=== PATIENT | female | born 1945 | race Caucasian/White ===

== ENCOUNTER 2018-12-02 19:20 | Emergency (ER) | payer MEDICARE, OTHER ==
[~2018-12-02] VITALS: Ht 165.1 cm; Wt 63.5 kg
[~2018-12-02 19:20] MED LIST: ACET-2605 PO; ALBU18HF2 IH; AMYL1CAP58 PO; APIX2.5T PO; CALC0.253 PO; CARV6.252 PO; CHOL100062 PO; CYCL30DR EACHEYE; DARB60VI SUBCUT; ESCI20TA PO; EZET10TA16 PO; FEBU40TA PO; FERR210T PO; FOLI0.8T2 PO; GABA-532 PO; LORA1TAB PO; MECL-102 PO; PALI6TAB PO; SEVE800T7 PO; SODI650T PO; ZOLP5TAB2 PO
--- NOTE | 2018-12-02 19:35 | NUR ---
PT CHELI C/Clair L HAND PAIN AND SWELLING FROM A CAT SCRATCHES 2 WEEKS AGO. TAKEN 2 COURSE UNKOWN ANTIBIOTICS W/ NO RELIEF. PT AOX4. RESP EVEN AND UNLABORED. PT ON MONITOR IN BED 4 WITH SON AT BEDSIDE. WILL CONTINUE TO MONITOR.
--- NOTE | 2018-12-02 20:17 | NUR ---
CALLED DR JARRELL FOR A DR TO LEFT A MESSAGE AND AWAITING HIS CALL
--- NOTE | 2018-12-02 20:23 | NUR ---
BLOOD DRAWN AND GIVEN TO LAB
[2018-12-02 20:24] LABS: BASOPHILS # (AUTO) 0.1 /CMM (0.0-0.2); BASOPHILS % (AUTO) 0.7 % (0.0-2.0); EOSINOPHILS % (AUTO) 0.7 % (0.0-6.0); HEMATOCRIT 33 % (33-45); HEMOGLOBIN 10.6 g/dL (11.5-14.8); LYMPHOCYTES % (AUTO) 22.1 % (20.0-44.0); MEAN CORPUSCULAR HGB CONC 32 g/dl (31.0-36.0); MEAN CORPUSCULAR VOLUME 93 fL (82-100); MONOCYTES % (AUTO) 10.4 % (2.0-12.0); NEUTROPHILS % (AUTO) 66.1 % (43.0-81.0); PLATELET COUNT (AUTO) 230 /CMM (150-450); RED BLOOD CELL COUNT(AUTO) 3.54 MIL/uL (4.0-5.2); WHITE BLOOD COUNT (AUTO) 9.1 K/uL (4.3-11.0)
--- NOTE | 2018-12-02 20:28 | NUR ---
PT TAKEN TO RADIOLOGY VIA [facility]
[2018-12-02] MEDS ORDERED: KETOROLAC TROMETHAMINE 15 MG/ML VIAL ONE (20:29)
[2018-12-02] MEDS ORDERED: KETOROLAC TROMETHAMINE INJ 30 MG/ML VIAL IV ONE (20:30)
[2018-12-02] MEDS ORDERED: IV NS 0.9% 1,000 ML BAG IV ONE (20:30)
[2018-12-02 20:37] LABS: CALCIUM, SERUM 8.2 mg/dL (8.5-10.1); CARBON DIOXIDE 16 mmol/L (21-32); CHLORIDE 100 mmol/L (98-107); CREATININE 4.7 mg/dL (0.6-1.3); GLUCOSE 105 mg/dL (74-106); POTASSIUM 4.5 mmol/L (3.5-5.1); SODIUM SERUM 130 mmol/L (136-145)
[2018-12-02 20:38] LABS: UREA NITROGEN, BLOOD 89 mg/dL (7-18)
--- NOTE | 2018-12-02 20:38 | NUR ---
BUN:89. AWARE
--- NOTE | 2018-12-02 20:43 | NUR ---
PT RETURNED FROM [facility]IOLOGY [facility]. PT TOLERATED WELL.
[2018-12-02 21:05] VITALS: BP 158/77
--- NOTE | 2018-12-02 21:48 | NUR ---
IV removed. Catheter intact and site benign. Pressure and 4x4 applied to site. No bleeding noted.Patient discharged to home in stable condition. Written and verbal after care instructions given. Patient verbalizes understanding of instruction.
[2018-12-10] MEDS ORDERED: HYDR-4384 PO (11:47)
[2018-12-10] MEDS ORDERED: SEVE800T7 PO (11:47)
[2018-12-10] MEDS ORDERED: DAPT500V2 IV (11:47)
[2018-12-10] MEDS ORDERED: ACID1TAB12 PO (11:47)
[2018-12-10] MEDS ORDERED: CEFE1FRO IV (11:47)
== END 2018-12-02 22:21 | disposition home or self-care (01) ==
LOC: ER 19:20
DX: L08.9 Local infection of the skin and subcutaneous tissue, unspecified (principal); M13.841 Other specified arthritis, right hand; E11.22 Type 2 diabetes mellitus with diabetic chronic kidney disease; I13.0 Hypertensive heart and chronic kidney disease with heart failure and stage 1 through stage 4 chronic kidney disease, or unspecified chronic kidney disease; N18.4 Chronic kidney disease, stage 4 (severe); I50.9 Heart failure, unspecified; Z79.899 Other long term (current) drug therapy
CPT/HCPCS: 36415; 73200; 80048; 84145; 85025; 86140; 96374; 99284; J1885; J7030

== ENCOUNTER 2018-12-06 14:20 | Outpatient (CLI) | payer MEDICARE, OTHER ==
[2018-12-06] MEDS ORDERED: AMLO5TAB9 PO (16:01)
[2018-12-06] MEDS ORDERED: FERR325T23 PO (16:01)
[2018-12-06] MEDS ORDERED: MUPI22OI2 TP (16:01)
[2018-12-06] MEDS ORDERED: TRAM50TA2 PO (16:01)
[2018-12-06] MEDS ORDERED: FLUT16SP BNOSTRILS (16:01)
[2018-12-06] MEDS ORDERED: SULF1TAB48 PO (16:01)
[2018-12-06] MEDS ORDERED: PHEN57OI RC (16:01)
[2018-12-06] MEDS ORDERED: PALI6TAB PO (16:01)
[2018-12-06] MEDS ORDERED: SERT25TA PO (16:01)
[2018-12-06] MEDS ORDERED: MECL-102 PO (16:01)
[2018-12-06] MEDS ORDERED: ASPI-1152 PO (16:01)
[2018-12-06] MEDS ORDERED: MEMA10TA PO (16:01)
[2018-12-06] MEDS ORDERED: ATOR10TA PO (16:01)
[2018-12-06] MEDS ORDERED: SEVE800T28 PO (16:01)
[2018-12-06] MEDS ORDERED: BUDE10.2 IH (16:01)
[2018-12-06] MEDS ORDERED: ERGO500014 PO (16:01)
[2018-12-06] MEDS ORDERED: AMIO200T4 PO (16:01)
[2018-12-06] MEDS ORDERED: ACET-868 PO (16:01)
[2018-12-10] MEDS ORDERED: HYDR-4384 PO (11:47)
[2018-12-10] MEDS ORDERED: DAPT500V2 IV (11:47)
[2018-12-10] MEDS ORDERED: SEVE800T7 PO (11:47)
[2018-12-10] MEDS ORDERED: ACID1TAB12 PO (11:47)
[2018-12-10] MEDS ORDERED: CEFE1FRO IV (11:47)
== END 2018-12-06 23:59 | disposition home health service (06) ==
LOC: WOU 14:20
PROVIDERS: ATTEND Surgery
DX: L03.113 Cellulitis of right upper limb (principal); S61.411D Laceration without foreign body of right hand, subsequent encounter; W55.03XD Scratched by cat, subsequent encounter; R60.0 Localized edema; I11.0 Hypertensive heart disease with heart failure; I50.9 Heart failure, unspecified; I82.402 Acute embolism and thrombosis of unspecified deep veins of left lower extremity; Z79.899 Other long term (current) drug therapy
CPT/HCPCS: G0463

== ENCOUNTER 2018-12-06 14:40 | Inpatient (IN) | payer MEDICARE, OTHER ==
[~2018-12-06] VITALS: Ht 165.1 cm; Wt 65.3 kg
--- NOTE | 2018-12-06 14:51 | NUR ---
BIB SON VFOR R HAND CELLULITIS. SEND BY DR JARRELL FOR IV ANTIBIOTICS" PT AAOX4, -SOB, NAD NOTED, VSS, PENDING MD NAZARIO
--- NOTE | 2018-12-06 14:51 | NUR ---
Misael salomongilson in EDM - 12/06/18 at 1636 by RHILOMEN ""im depressed and feeling suicidal" +plan, run BIB SON VFOR R HAND CELLULITIS. SEND BY DR JARRELL FOR IV ANTIBIOTICS" PT AAOX4, -SOB, NAD NOTED, VSS, PENDING MD NAZARIO
[2018-12-06] MEDS ORDERED: PIPERACILLIN /TAZOBACTAM 3.375 G in IV D5W 50 ML IV ONE (15:00)
[2018-12-06] MEDS ORDERED: VANCOMYCIN HCL 1 GM in IV D5W 260 ML IV ONE (15:00)
--- NOTE | 2018-12-06 15:09 | NUR ---
CALLED [facility], PAGED YAYA
[2018-12-06 15:27] LABS: BASOPHILS # (AUTO) 0.1 /CMM (0.0-0.2); BASOPHILS % (AUTO) 1.2 % (0.0-2.0); EOSINOPHILS % (AUTO) 1.2 % (0.0-6.0); HEMATOCRIT 34 % (33-45); HEMOGLOBIN 10.5 g/dL (11.5-14.8); LYMPHOCYTES # (AUTO) 1.3 /CMM (0.8-4.8); LYMPHOCYTES % (AUTO) 19.1 % (20.0-44.0); MEAN CORPUSCULAR HGB CONC 31 g/dl (31.0-36.0); MEAN CORPUSCULAR VOLUME 96 fL (82-100); MONOCYTES # (AUTO) 0.5 /CMM (0.1-1.30); MONOCYTES % (AUTO) 6.9 % (2.0-12.0); NEUTROPHILS % (AUTO) 71.6 % (43.0-81.0); PLATELET COUNT (AUTO) 153 /CMM (150-450); RED BLOOD CELL COUNT(AUTO) 3.48 MIL/uL (4.0-5.2); WHITE BLOOD COUNT (AUTO) 6.9 K/uL (4.3-11.0)
--- NOTE | 2018-12-06 15:32 | NUR ---
CALLED NURSING SUP FOR MEDSURG BED
[2018-12-06 15:33] LABS: CALCIUM, SERUM 8.8 mg/dL (8.5-10.1); CARBON DIOXIDE 11 mmol/L (21-32); CHLORIDE 103 mmol/L (98-107); CREATININE 5.7 mg/dL (0.6-1.3); GLUCOSE 89 mg/dL (74-106); POTASSIUM 4.8 mmol/L (3.5-5.1); SODIUM SERUM 130 mmol/L (136-145); UREA NITROGEN, BLOOD 76 mg/dL (7-18)
[2018-12-06] MEDS ORDERED: PALI6TAB PO (16:01)
[2018-12-06] MEDS ORDERED: SEVE800T28 PO (16:01)
[2018-12-06] MEDS ORDERED: BUDE10.2 IH (16:01)
[2018-12-06] MEDS ORDERED: AMIO200T4 PO (16:01)
[2018-12-06] MEDS ORDERED: MUPI22OI2 TP (16:01)
[2018-12-06] MEDS ORDERED: ACET-868 PO (16:01)
[2018-12-06] MEDS ORDERED: ERGO500014 PO (16:01)
[2018-12-06] MEDS ORDERED: TRAM50TA2 PO (16:01)
[2018-12-06] MEDS ORDERED: AMLO5TAB9 PO (16:01)
[2018-12-06] MEDS ORDERED: MEMA10TA PO (16:01)
[2018-12-06] MEDS ORDERED: ASPI-1152 PO (16:01)
[2018-12-06] MEDS ORDERED: PHEN57OI RC (16:01)
[2018-12-06] MEDS ORDERED: FLUT16SP BNOSTRILS (16:01)
[2018-12-06] MEDS ORDERED: MECL-102 PO (16:01)
[2018-12-06] MEDS ORDERED: SULF1TAB48 PO (16:01)
[2018-12-06] MEDS ORDERED: SERT25TA PO (16:01)
[2018-12-06] MEDS ORDERED: FERR325T23 PO (16:01)
[2018-12-06] MEDS ORDERED: ATOR10TA PO (16:01)
[2018-12-06] MEDS ORDERED: INSULIN REGULAR, HUMAN 100 UNIT/ML 3 ML VIAL SQ PRN (16:30)
[2018-12-06] MEDS ORDERED: HYDROCODONE/APAP 5/325MG 1 EACH TABLET PO PRN (16:30)
[2018-12-06] MEDS ORDERED: MAGNESIUM HYDROXIDE 30 ML UDC PO PRN (16:30)
[2018-12-06] MEDS ORDERED: DEXTROSE 50%-WATER 50 ML DISP.SYRIN IV PRN (16:30)
[2018-12-06] MEDS ORDERED: MAG HYDROX/AL HYDROX/SIMETH 30 ML UDC PO PRN (16:30)
[2018-12-06] MEDS ORDERED: TEMAZEPAM 15 MG CAPSULE PO PRN (16:30)
[2018-12-06] MEDS ORDERED: MORPHINE SULFATE INJ 2 MG/ML DISP.SYRIN IV PRN (16:30)
[2018-12-06] MEDS ORDERED: ERGOCALCIFEROL (VITAMIN D 2) 50,000 UNIT CAPSULE PO SCH (16:30)
[2018-12-06] MEDS ORDERED: ONDANSETRON HCL/PF 4 MG/2 ML VIAL IVP PRN (16:30)
--- NOTE | 2018-12-06 16:48 | NUR ---
REPORT GIVEN TO BILLIE SHEIKH FOR RAYSA PT WILL BE TRANSPORTED TO 3RD FLOOR MS
[2018-12-06] MEDS ORDERED: IV NS 0.9% 500 ML IV ONE (17:00)
[2018-12-06] MEDS: MEMANTINE HCL 5 MG TABLET PO SCH (17:00)
[2018-12-06] MEDS: GABAPENTIN 100 MG CAPSULE PO SCH (17:00)
[2018-12-06] MEDS: SODIUM BICARBONATE 650 MG TABLET PO SCH (17:00)
[2018-12-06] MEDS ORDERED: FEE PK DOSING 1 MIN EA MC ONE (17:12)
[2018-12-06] MEDS ORDERED: IPRATROPIUM NEB FS 0.5 MG/2.5 ML AMPUL.NEB NEB PRN (17:30)
[2018-12-06] MEDS ORDERED: ALBUTEROL FS 2.5 MG/3 ML VIAL.NEB NEB PRN (17:30)
[2018-12-06] MEDS: BLOOD SUGAR DIAGNOSTIC 1 EACH STRIP IN SCH ×2 (17:30→22:00)
--- NOTE | 2018-12-06 17:59 | NUR ---
PT TRANSPORTED TO 3RD FLOOR
[2018-12-06 18:00] VITALS: BP 149/75
--- NOTE | 2018-12-06 18:00 | NUR ---
RECEIVED PATIENT AWAKE , ALERT AND ORIENTED X4 , AMBULATORY. PATIENT ADM. TO MS WITH DIAGNOSIS R HAND CELLULITIS. SKIN INSPECTED AND INTACT EXCEPT R HAND. PICTURE TAKEN AND PLACED IN THE CHART. BELONGINGS LIST COMPLETED AND SIGHED BY 2 NURSES DUE TO PT RIGHT HANDED AND UNABLE TO SIGHT AT THIS TIME. vs ARE STABLE AND WITHIN BASELINE, ON ROOM AIR . IV ASSESS TO THE LEFT AC G20, LEFT ARM G20 HL FLUSHING WELL. PATIENT ORIENTED TO ROOM AND EDUCATED TO USE CALL LIGHT. PATIENT VERBALIZED UNDERSTANDING. NEEDS ATTENDED.DINNER PROVIDED. PATIENT REFUSED ACCU CHECK AND MOST OF 1700PM MEDS. PATIENT STATES SHE DOES NOT TAKE ALL THIS MEDS AND SHE IS NOT DIABETIC. WILL ENDORSE TO NEXT SHIFT FOR RAYSA.
[2018-12-06] MEDS: FERROUS SULFATE (325 MG) 325 MG/TAB TABLET PO SCH (18:37)
[2018-12-06] MEDS: SEVELAMER CARBONATE 800 MG TABLET PO SCH (18:37)
[2018-12-06] MEDS ORDERED: CLINDAMYCIN IV RTU IN D5W 900 MG/50 ML PIGGYBACK IV SCH (19:30)
--- NOTE | 2018-12-06 20:00 | NUR ---
MS RN NOTES PATIENT AWAKE IN BED WITH NO DISTRESS NOTED. CALL LIGHT WITHIN REACH. NO C/O PAIN OR DISCOMFORT. PERIPHERAL LINE INTACT AND PATENT. ENCOURAGED USE OF CALL LIGHT FOR ASSISTANCE AND VERBALIZED GOOD UNDERSTANDING. BED IN LOW LOCK SETTING. ROOM FREE OF CLUTTER AND BELONGINGS KEPT NEAR BEDSIDE. WILL CONTINUE TO MONITORING.
[2018-12-06] MEDS: PIPERACILLIN /TAZOBACTAM 2.25 G in IV D5W 50 ML IV SCH (21:31)
[2018-12-06 23:30] VITALS: BP 157/62
[2018-12-07] MEDS: ATORVASTATIN 10 MG TABLET PO SCH ×2 (00:30→21:10)
[2018-12-07] MEDS: CLINDAMYCIN 900 MG in IV D5W 50 ML IV SCH ×4 (00:34→21:58)
[2018-12-07] MEDS: PIPERACILLIN /TAZOBACTAM 2.25 G in IV D5W 50 ML IV SCH ×3 (05:24→21:08)
--- NOTE | 2018-12-07 06:32 | NUR ---
MS RN NOTES
--- NOTE | 2018-12-07 06:32 | NUR ---
OIL PIPE INSPECTOR NOTES PATIENT ASLEEP IN BED WITH NO DISTRESS NOTED. CALL LIGHT WITHIN REACH. ALL DUE MEDS GIVEN ORDERED WITH NO ASE NOTED. NO C/O PAIN OR DISCOMFORT. PERIPHERAL LINE INTACT AND PATENT. BED IN LOW LOCK SETTING. ROOM FREE OF CLUTTER AND BELONGINGS KEPT NEAR BEDSIDE. WILL ENDORSE TO ONCOMING SHIFT. Addendum: 12/07/18 at 0632 by DEBBIE BROWN RN MS SHEIKH NOTES
[2018-12-07] MEDS: BLOOD SUGAR DIAGNOSTIC 1 EACH STRIP IN SCH ×4 (07:27→22:00)
[2018-12-07 08:00] VITALS: BP 131/58
--- NOTE | 2018-12-07 08:00 | NUR ---
m/s health and nutrition specialist: initial assessment received pt in bed awake, a/ox3. dx: right hand cellulitis. right upper extremity elevated with pillow. pt cannot fully open her hand and still has some discomfort when hand is being used. no apparent distress noted. instructed to call for assistance.
[2018-12-07] MEDS: SEVELAMER CARBONATE 800 MG TABLET PO SCH ×3 (08:53→17:26)
[2018-12-07] MEDS: FERROUS SULFATE (325 MG) 325 MG/TAB TABLET PO SCH ×2 (08:54→17:00)
[2018-12-07] MEDS: EZETIMIBE 10 MG TABLET PO SCH (08:54)
[2018-12-07] MEDS: AMLODIPINE BESYLATE 5 MG TABLET PO SCH (08:54)
[2018-12-07] MEDS: MEMANTINE HCL 5 MG TABLET PO SCH ×2 (08:56→17:00)
[2018-12-07] MEDS: PANTOPRAZOLE 40 MG TABLET.DR PO SCH (08:56)
[2018-12-07] MEDS: MECLIZINE HCL 25 MG TABLET PO SCH (08:56)
[2018-12-07] MEDS: AMIODARONE HCL 200 MG TABLET PO SCH (08:56)
[2018-12-07] MEDS: ASPIRIN EC 81 MG TABLET.DR PO SCH (08:56)
[2018-12-07] MEDS: GABAPENTIN 100 MG CAPSULE PO SCH ×3 (08:56→17:00)
[2018-12-07] MEDS: SERTRALINE HCL 25 MG TABLET PO SCH (08:57)
--- NOTE | 2018-12-07 09:00 | NUR ---
m/s resource recovery engineer: notes noted pt selective with her meds. pt will go one by one with her meds. pt will refused them despite educated pt on her home medications.
[2018-12-07] MEDS: SODIUM BICARBONATE 650 MG TABLET PO SCH ×2 (10:26→17:26)
--- NOTE | 2018-12-07 11:00 | NUR ---
m/s machine packager: md visit seen and examined by dr. mata at this time.
--- NOTE | 2018-12-07 13:32 | NUR ---
m/dora long: notes pt refused lab draw per v belt mold assembler and curer and also from this morning. Addendum: 12/07/18 at 1704 by RUBENS BOB LVN pt remains selective with her meds.
[2018-12-07 16:00] VITALS: BP 113/45
--- NOTE | 2018-12-07 16:15 | NUR ---
m/s healthcare sales representative: notes f/u made re: invega and uloric meds. ask pt if one of the family can bring these to meds, stated, "i'm not taking invega anymore and i will ask my sister to bring my uloric med." pharmacist made aware.
[2018-12-07] MEDS ORDERED: LACTOBACILLUS RHAMNOSUS GG 1 EACH CAP.SPRINK PO SCH (17:00)
--- NOTE | 2018-12-07 17:26 | NUR ---
m/s materials director: notes offered her 5pm meds and pt refused to take them except for sodium bicarbonate tab.
--- NOTE | 2018-12-07 18:30 | NUR ---
m/s hospice care consultant: notes resting comfortable in bed. no distress noted. needs attended. will monitor.
[2018-12-07] MEDS ORDERED: VITAMINS A AND D 56.7 GM TUBE TP PRN ×2 (19:00)
--- NOTE | 2018-12-07 19:20 | NUR ---
m/s park interpretive ranger: notes report given to silvia (rn) for continuity of care.
--- NOTE | 2018-12-07 19:46 | NUR ---
MS RN NOTES RECEIVED PATIENT ASLEEP IN BED WITH NO DISTRESS NOTED. CALL LIGHT WITHIN REACH. NO C/O PAIN OR DISCOMFORT. PERIPHERAL LINE INTACT AND PATENT. BED IN LOW LOCK SETTING. ALL BELONGINGS KEPT NEAR BEDSIDE. WILL CONTINUE TO MONITOR.
[2018-12-07 20:00] VITALS: BP 119/58
[2018-12-07] MEDS: ACIDOPHILUS/BULGARICUS 1 EACH TAB.CHEW PO SCH (21:10)
[2018-12-07] MEDS: ACETAMINOPHEN 325 MG TABLET PO PRN (23:17)
[2018-12-08] MEDS: CLINDAMYCIN 900 MG in IV D5W 50 ML IV SCH ×3 (04:26→20:23)
[2018-12-08] MEDS: PIPERACILLIN /TAZOBACTAM 2.25 G in IV D5W 50 ML IV SCH ×3 (04:57→20:56)
--- NOTE | 2018-12-08 06:26 | NUR ---
MS RN NOTES PATIENT ASLEEP IN BED WITH NO DISTRESS NOTED. CALL LIGHT WITHIN REACH. NO FACIAL GRIMACING OR GROANING TO INDICATE PAIN OR DISCOMFORT. ALL DUE MEDS GIVEN ORDERED WITH NO ASE. PERIPHERAL LINE REMAINS INTACT AND PATENT. BED IN LOW LOCK SETTING. ALL BELONGINGS KEPT NEAR BEDSIDE. WILL ENDORSE TO ONCOMING SHIFT.
[2018-12-08] MEDS: BLOOD SUGAR DIAGNOSTIC 1 EACH STRIP IN SCH ×4 (07:30→21:54)
[2018-12-08] MEDS: PANTOPRAZOLE 40 MG TABLET.DR PO SCH (07:30)
[2018-12-08 08:00] VITALS: BP 139/66
--- NOTE | 2018-12-08 08:05 | NUR ---
ms rn received on bed, awake,alert,oriented x4,not in any form of distress, respirations even and unlabored,no sob noted, lungs are clear,abdomen soft,positive bowel sounds,denies pain at this time,all needs attended.
[2018-12-08] MEDS: GABAPENTIN 100 MG CAPSULE PO SCH ×3 (09:00→17:00)
[2018-12-08] MEDS: FLUTICASONE/VILANTEROL 1 EACH BLST.W.DEV IH SCH (09:00)
[2018-12-08] MEDS: MEMANTINE HCL 5 MG TABLET PO SCH ×2 (09:00→17:00)
[2018-12-08] MEDS: MECLIZINE HCL 25 MG TABLET PO SCH (09:00)
[2018-12-08] MEDS: ACIDOPHILUS/BULGARICUS 1 EACH TAB.CHEW PO SCH ×3 (09:00→17:00)
[2018-12-08] MEDS: ASPIRIN EC 81 MG TABLET.DR PO SCH (09:00)
[2018-12-08] MEDS: SERTRALINE HCL 25 MG TABLET PO SCH (09:00)
[2018-12-08] MEDS: AMIODARONE HCL 200 MG TABLET PO SCH (09:00)
[2018-12-08] MEDS: EZETIMIBE 10 MG TABLET PO SCH (09:00)
--- NOTE | 2018-12-08 09:30 | NUR ---
ms cardoza breakfast served,due meds given,tolerated well.
--- NOTE | 2018-12-08 09:30 | NUR ---
ms rn refused some of her meds,all needs attended.
[2018-12-08] MEDS: FERROUS SULFATE (325 MG) 325 MG/TAB TABLET PO SCH ×2 (09:34→17:14)
[2018-12-08] MEDS: AMLODIPINE BESYLATE 5 MG TABLET PO SCH (09:35)
[2018-12-08] MEDS: SEVELAMER CARBONATE 800 MG TABLET PO SCH ×3 (09:37→17:34)
[2018-12-08 09:43] LABS: CALCIUM, SERUM 8.6 mg/dL (8.5-10.1); CARBON DIOXIDE 13 mmol/L (21-32); CHLORIDE 105 mmol/L (98-107); CREATININE 5.7 mg/dL (0.6-1.3); GLUCOSE 85 mg/dL (74-106); POTASSIUM 4.8 mmol/L (3.5-5.1); SODIUM SERUM 133 mmol/L (136-145); UREA NITROGEN, BLOOD 68 mg/dL (7-18)
[2018-12-08] MEDS: SODIUM BICARBONATE 650 MG TABLET PO SCH ×2 (09:44→17:14)
--- NOTE | 2018-12-08 12:10 | NUR ---
ms cardoza bs - 119 - no coverage needed.
[2018-12-08 16:00] VITALS: BP 112/52
--- NOTE | 2018-12-08 19:28 | NUR ---
MS RN ON BED,NO DISTRESS NOTED.
[2018-12-08 20:00] VITALS: BP 129/55
--- NOTE | 2018-12-08 20:00 | NUR ---
MS/RN NOTES PATIENT ALERT, ORIENTED, X4, ABLE TO VERBALIZE NEEDS, RESPIRATIONS EVEN AND UNLABORED,5RIGHT HAND WITH CELLULITIS, ABLE TO WALK WITH SUPERVISION. TOLERABLE PAIN, CAN AMBULATE, ON IV ANTIBIOTIC THRERAPY, IV SITE WITH NO S/S OF INFILTRATION. REFUSE TO WEAR GOWN, COOPERATIVE AND MOTIVATED FOR SELF CARE, REPORTED WANT TO HAVE A GOOD SLEEP TONIGHT AND REQUESTED FOR THLENOL 650 MG FOR PAIN. BED LOCKED, CALL LIGHTS WITHIN REACH, WATCHING TV AT THIS TIME
[2018-12-08 20:06] VITALS: BP 129/55
--- NOTE | 2018-12-08 20:30 | NUR ---
ms/rn notes PATIENT REFUSED TO HAVE BLOOD SUGAR CHECK AND SAID SHE DOES NOT HAVE DIABETES PREFER TO HAVE IT CHECK ONCE ONLY IN AM.DISCUSSED CARE PLAN.
[2018-12-08] MEDS: ACETAMINOPHEN 325 MG TABLET PO PRN (20:31)
[2018-12-08] MEDS: ATORVASTATIN 10 MG TABLET PO SCH (21:54)
[2018-12-09] MEDS: CLINDAMYCIN 900 MG in IV D5W 50 ML IV SCH ×3 (04:00→21:26)
[2018-12-09] MEDS: PIPERACILLIN /TAZOBACTAM 2.25 G in IV D5W 50 ML IV SCH ×3 (04:43→20:24)
[2018-12-09] MEDS: BLOOD SUGAR DIAGNOSTIC 1 EACH STRIP IN SCH ×4 (06:30→22:00)
--- NOTE | 2018-12-09 06:30 | NUR ---
MS/RN NOTES PATIENT REFUSED TO HAVE BLOOD SUGAR CHECKED AND REPORTED SHE IS NOT DIABETIC.
--- NOTE | 2018-12-09 06:52 | NUR ---
MS/RN NOTES PATIENT ALERT, ORIENTED X3, ABLE TO VERBALIZE NEEDS, SLEPT GOOD. IV ON LEFT FOREARM PATENT WITH NO S/S OF INFILTRATION, IV ANTIBIOTIC INFUSED. RESPIRATIONS EVEN AND UNLABORED, PARTICIPATED WITH SELF CARE, AMBULATORY WITH SUPERVISION. DENIES AND REPORT PAIN TOLERABLE, RIGHT HAND WOUND ELEVATED PER MD ORDER. MONITORED AND WILL ENDORSE TO AM RN FOR RAYSA.
[2018-12-09 08:00] VITALS: BP 120/77
[2018-12-09] MEDS: MECLIZINE HCL 25 MG TABLET PO SCH (09:00)
[2018-12-09] MEDS: AMIODARONE HCL 200 MG TABLET PO SCH (09:00)
[2018-12-09] MEDS: ACIDOPHILUS/BULGARICUS 1 EACH TAB.CHEW PO SCH ×3 (09:00→17:00)
[2018-12-09] MEDS: SERTRALINE HCL 25 MG TABLET PO SCH (09:00)
[2018-12-09] MEDS: MEMANTINE HCL 5 MG TABLET PO SCH ×2 (09:00→17:00)
[2018-12-09] MEDS: FLUTICASONE/VILANTEROL 1 EACH BLST.W.DEV IH SCH (09:00)
[2018-12-09] MEDS: ASPIRIN EC 81 MG TABLET.DR PO SCH (09:00)
[2018-12-09] MEDS: AMLODIPINE BESYLATE 5 MG TABLET PO SCH (09:00)
[2018-12-09] MEDS: GABAPENTIN 100 MG CAPSULE PO SCH ×3 (09:00→17:00)
--- NOTE | 2018-12-09 10:00 | NUR ---
ms cardoza breakfast served,due meds given,tolerated well.
[2018-12-09] MEDS: SEVELAMER CARBONATE 800 MG TABLET PO SCH ×3 (10:43→18:04)
[2018-12-09] MEDS: EZETIMIBE 10 MG TABLET PO SCH (10:43)
[2018-12-09] MEDS: FERROUS SULFATE (325 MG) 325 MG/TAB TABLET PO SCH ×2 (10:43→18:04)
[2018-12-09] MEDS: PANTOPRAZOLE 40 MG TABLET.DR PO SCH (10:43)
[2018-12-09] MEDS: SODIUM BICARBONATE 650 MG TABLET PO SCH ×2 (10:44→18:04)
--- NOTE | 2018-12-09 11:30 | NUR ---
balbina cardoza was seen by clarence villegas/ orders made and carried out.
--- NOTE | 2018-12-09 12:00 | NUR ---
ms rn refused blood sugar check.
[2018-12-09] MEDS ORDERED: LIDOCAINE 1% INJ 50 ML MDV IJ STA (14:55)
--- NOTE | 2018-12-09 15:00 | NUR ---
ms rn debridement of right hand/finger done by ivette villegas/ dressing dry and intact. denies pain at this time.
[2018-12-09 16:00] VITALS: BP 150/69
[2018-12-09] MEDS ORDERED: VANCOMYCIN 0.75 GM in IV D5W 250 ML IV SCH (16:00)
--- NOTE | 2018-12-09 17:30 | NUR ---
ms rn patient refused blood sugar check.
--- NOTE | 2018-12-09 18:46 | NUR ---
ms rn on bed, no distress noted,all needs attended.
--- NOTE | 2018-12-09 19:33 | NUR ---
RN OPENING NOTES 1932 RECEIVED PATIENT FROM AGUILAR PATE. PATIENT IS A/O X 4, ABLE TO VERBALIZE NEEDS, RESPIRATIONS EVEN AND UNLABORED. RIGHT HAND WITH CELLULITIS. AMBULATORY WITH ASSISTANCE. IV SITE INTACT AND PATENT WITH NO SIGNS OR SYMPTOMS OF INFECTION/INFILTRATION. NO SIGNS OF RESPIRATORY DISTRESS. PATIENT DENIES SHORTNESS OF BREATH. SAFETY PRECAUTIONS IMPLEMENTED; CALL LIGHT WITHIN REACH, BED LOCKED, LOWEST POSITION, SIDE RAILS UP X2. WILL CONTINUE TO MONITOR.
[2018-12-09 20:00] VITALS: BP 137/58
[2018-12-09] MEDS: ACETAMINOPHEN 325 MG TABLET PO PRN (20:08)
--- NOTE | 2018-12-09 22:00 | NUR ---
RN NOTES PATIENT REFUSED PM ACCUCHEKS. SAYING SHE IS NOT DIABETIC. DISCUSSED THE RISKS FOR REFUSING ACCUCHEKS. PATIENT STILL REFUSED.
[2018-12-09] MEDS: ATORVASTATIN 10 MG TABLET PO SCH (22:20)
[2018-12-10] MEDS: CLINDAMYCIN 900 MG in IV D5W 50 ML IV SCH ×2 (04:06→14:48)
[2018-12-10] MEDS: PIPERACILLIN /TAZOBACTAM 2.25 G in IV D5W 50 ML IV SCH ×2 (04:37→13:18)
--- NOTE | 2018-12-10 06:00 | NUR ---
RN NOTES PATIENT REFUSED ACCUCHEKS FOR AM. SHE REPORTS SHE IS NOT DIABETIC. DISCUSSED THE RISKS FOR REFUSING BLOOD SUGAR CHECKS. PATIENT STILL REFUSES.
--- NOTE | 2018-12-10 06:01 | NUR ---
RN NOTES PATIENT REFUSED AM BLOOD DRAW FROM POST ACUTE CARE NURSE.
--- NOTE | 2018-12-10 06:14 | NUR ---
RN CLOSING NOTES PATIENT REMAINS IN BED, ASLEEP, EASILY AROUSABLE. ABLE TO VERBALIZE NEEDS. IV SITE REMAINS INTACT AND PATENT WITH NO SIGNS OR SYMPTOMS OF INFECTION/INFILTRATION. NO SIGNS OF RESPIRATORY DISTRESS, NO SHORTNESS OF BREATH NOTED. NO SIGNS OF FACIAL GRIMACING INDICATING PAIN OR DISCOMFORT AT THIS TIME. RIGHT HAND WOUND ELEVATED PER MD ORDER. SAFETY PRECAUTIONS IMPLEMENTED; CALL LIGHT WITHIN REACH, BED LOCKED, BED LOWEST POSITION, SIDE RAILS UP X2. WILL ENDORSE TO DAYSHIFT NURSE FOR CONTINUITY OF CARE.
[2018-12-10] MEDS: BLOOD SUGAR DIAGNOSTIC 1 EACH STRIP IN SCH ×3 (07:30→16:48)
[2018-12-10 08:00] VITALS: BP 130/70
--- NOTE | 2018-12-10 08:00 | NUR ---
m/s life coach: initial assessment received pt in bed awake, a/ox3-4. pt refused hospital food. pt has home food at bedside. dressing to right hand c/d/i. right upper ext elevated with pillow. no c/o pain or any discomfort. instructed to call for assistance. will continue to monitor.
[2018-12-10 08:59] VITALS: BP 130/70
[2018-12-10] MEDS: FLUTICASONE/VILANTEROL 1 EACH BLST.W.DEV IH SCH (08:59)
[2018-12-10] MEDS: AMLODIPINE BESYLATE 5 MG TABLET PO SCH (08:59)
[2018-12-10] MEDS: EZETIMIBE 10 MG TABLET PO SCH (08:59)
[2018-12-10] MEDS: SEVELAMER CARBONATE 800 MG TABLET PO SCH ×2 (08:59→17:59)
[2018-12-10] MEDS: SODIUM BICARBONATE 650 MG TABLET PO SCH ×2 (08:59→18:00)
[2018-12-10] MEDS: PANTOPRAZOLE 40 MG TABLET.DR PO SCH (08:59)
[2018-12-10] MEDS: FERROUS SULFATE (325 MG) 325 MG/TAB TABLET PO SCH ×2 (09:00→16:48)
[2018-12-10] MEDS: MEMANTINE HCL 5 MG TABLET PO SCH ×2 (09:00→16:48)
[2018-12-10] MEDS: AMIODARONE HCL 200 MG TABLET PO SCH (09:00)
[2018-12-10] MEDS: MECLIZINE HCL 25 MG TABLET PO SCH (09:00)
[2018-12-10] MEDS: ACIDOPHILUS/BULGARICUS 1 EACH TAB.CHEW PO SCH ×3 (09:00→16:48)
[2018-12-10] MEDS: GABAPENTIN 100 MG CAPSULE PO SCH ×3 (09:00→16:48)
[2018-12-10] MEDS: ASPIRIN EC 81 MG TABLET.DR PO SCH (09:00)
[2018-12-10] MEDS: SERTRALINE HCL 25 MG TABLET PO SCH (09:00)
--- NOTE | 2018-12-10 09:00 | NUR ---
m/s radio producer: notes pt remains selective with her meds, been refusing most of her meds since admission. will f/u with .
[2018-12-10 09:35] LABS: BASOPHILS # (AUTO) 0.1 /CMM (0.0-0.2); BASOPHILS % (AUTO) 2.3 % (0.0-2.0); EOSINOPHILS % (AUTO) 2.6 % (0.0-6.0); HEMATOCRIT 30 % (33-45); HEMOGLOBIN 9.8 g/dL (11.5-14.8); LYMPHOCYTES # (AUTO) 1.5 /CMM (0.8-4.8); LYMPHOCYTES % (AUTO) 29.2 % (20.0-44.0); MEAN CORPUSCULAR HGB CONC 33 g/dl (31.0-36.0); MEAN CORPUSCULAR VOLUME 93 fL (82-100); MONOCYTES # (AUTO) 0.3 /CMM (0.1-1.30); MONOCYTES % (AUTO) 6.8 % (2.0-12.0); NEUTROPHILS % (AUTO) 59.1 % (43.0-81.0); PLATELET COUNT (AUTO) 150 /CMM (150-450); RED BLOOD CELL COUNT(AUTO) 3.21 MIL/uL (4.0-5.2)
[2018-12-10 09:48] LABS: CALCIUM, SERUM 8.4 mg/dL (8.5-10.1); CARBON DIOXIDE 13 mmol/L (21-32); CHLORIDE 107 mmol/L (98-107); CREATININE 5.5 mg/dL (0.6-1.3); GLUCOSE 100 mg/dL (74-106); PHOSPHORUS 5.4 mg/dL (2.5-4.9); POTASSIUM 5.3 mmol/L (3.5-5.1); SODIUM SERUM 133 mmol/L (136-145); UREA NITROGEN, BLOOD 60 mg/dL (7-18)
--- NOTE | 2018-12-10 10:00 | NUR ---
m/s electronics detail draftsperson: notes pt likes to wear her own clothes, refuse to wear a gown. pt remains selective with meds; also suspicious. pt refusing full body assessment. will continue to monitor.
--- NOTE | 2018-12-10 11:00 | NUR ---
m/s [employer] officer: notes clarence jenkins (acnp) here and informed her that pt has been refusing most of her meds and accu check since admission with no new order. clarence (acnp) plan to discharge the pt with the picc line.
--- NOTE | 2018-12-10 11:35 | NUR ---
m/s upstairs maid: md visit seen and examined by clarence jenkins (acnp) with new order for picc line and pt for d'c today. pt verbalized understanding of the need for picc line insertion for iv antibiotics used and consent signed. rn supervisor pleating made aware. nandini reardon) making arrangement for home health.
[2018-12-10] MEDS ORDERED: SEVE800T7 PO (11:47)
[2018-12-10] MEDS ORDERED: CEFE1FRO IV (11:47)
[2018-12-10] MEDS ORDERED: HYDR-4384 PO (11:47)
[2018-12-10] MEDS ORDERED: ACID1TAB12 PO (11:47)
[2018-12-10] MEDS ORDERED: DAPT500V2 IV (11:47)
--- NOTE | 2018-12-10 12:10 | NUR ---
m/s cashier supervisor: notes received order from clarence (acnp) to discharge pt today with home health and follow up. pt aware and agreed. place a call to becky (son) and made aware, spoke to him over the phone and will call him later once everything has been arrangement. niece on the other phone and wants to pick pt up with her mother, informed niece to call becky (son).
--- NOTE | 2018-12-10 13:30 | NUR ---
m/s quarter supervisor: notes abnormal chem results noted. clarence (acnp) notified and will put the order in.
[2018-12-10] MEDS ORDERED: SODIUM POLYSTYRENE SULFONATE 15 G/60 ML BOTTLE PO ONE (14:30)
--- NOTE | 2018-12-10 15:10 | NUR ---
m/s roadway designer: notes Soto (son) called for update, informed him that we are still waiting on the picc line nurse to come. pt also aware.
--- NOTE | 2018-12-10 15:30 | NUR ---
m/s sales service assistant: notes taryn (picc line nurse) here for insertion. all supplies received.
--- NOTE | 2018-12-10 16:30 | NUR ---
m/s standard machine stitcher: notes picc line nurse unable to advance line due to pacemaker wire as stated. removed line after chest x-ray taken, lorna. well. offered femoral line, but pt refuses. pt has a shunt on right arm and unable to it on the site. offered midline, but pt refused. clarence (acnp) notified and made aware and wants to wait for id if they have other recommendation. pt made aware. clarence wants to hold d'c for now.
--- NOTE | 2018-12-10 17:15 | NUR ---
m/s shop firer/fireman: notes son here and aware that pt has been refused all lines that was recommended.
[2018-12-10] MEDS ORDERED: LIDOCAINE /MPF 1% VIAL 5 ML VIAL IJ STA (17:27)
--- NOTE | 2018-12-10 17:30 | NUR ---
m/s taxonomist: notes pt change her mind after another picc line nurse went to talk to pt and son. clarence (acnp) notified and made aware and okay to discharge once mid line is done. pt and son made aware.
--- NOTE | 2018-12-10 18:00 | NUR ---
m/s card tape converter operator: notes midline inserted to left upper arm by marifer (rn), lorna. well. h/l removed with tip intact.
--- NOTE | 2018-12-10 18:10 | NUR ---
m/s print cutter: notes discharge instructions with prescriptions given to becky (son) with medications teaching provided. son verbalized understanding.
--- NOTE | 2018-12-10 18:15 | NUR ---
m/s bleach supervisor: discharged discharged home in stable condition accompanied by son vis private car with all d'c papers and belongings.
== END 2018-12-10 18:16 | disposition home or self-care (01) | DRG 579 ==
LOC: ER 14:41 → MED 16:55
PROVIDERS: ADMIT Nurse Practitioner Acute Care; ATTEND Registered Nurse
PROC: 05HY33Z Insertion of Infusion Device into Upper Vein, Percutaneous Approach (ICD-10-PCS; 2018-12-06)
PROC: 0JBJ0ZZ Excision of Right Hand Subcutaneous Tissue and Fascia, Open Approach (ICD-10-PCS; principal; 2018-12-09)
DX: L03.113 Cellulitis of right upper limb (principal); N17.0 Acute kidney failure with tubular necrosis; I13.0 Hypertensive heart and chronic kidney disease with heart failure and stage 1 through stage 4 chronic kidney disease, or unspecified chronic kidney disease; E87.1 Hypo-osmolality and hyponatremia; N18.4 Chronic kidney disease, stage 4 (severe); Z86.718 Personal history of other venous thrombosis and embolism; E11.22 Type 2 diabetes mellitus with diabetic chronic kidney disease; W55.01XA Bitten by cat, initial encounter; I25.10 Atherosclerotic heart disease of native coronary artery without angina pectoris; W55.03XA Scratched by cat, initial encounter; S61.451A Open bite of right hand, initial encounter; Y92.9 Unspecified place or not applicable; Z99.2 Dependence on renal dialysis; Z79.899 Other long term (current) drug therapy; Z79.51 Long term (current) use of inhaled steroids; Z79.01 Long term (current) use of anticoagulants; I27.20 Pulmonary hypertension, unspecified; E87.5 Hyperkalemia; D63.8 Anemia in other chronic diseases classified elsewhere; H93.19 Tinnitus, unspecified ear; M65.821 Other synovitis and tenosynovitis, right upper arm
CPT/HCPCS: 36415; 36569; 71045-TC; 73130-TC; 73200-TC; 80048-TC; 82962-TC; 83735-TC; 84100-TC; 85025-TC; 87040-TC; 87081-TC; A6403; A6407; C1751; G0378; J1815; J2543; J3490; J7040; J7060; J8597

== ENCOUNTER 2019-04-12 01:30 | Emergency (ER) | payer MEDICARE, OTHER ==
[~2019-04-12] VITALS: Ht 165.1 cm; Wt 73.9 kg
[~2019-04-12 01:30] MED LIST changes: -ACET-2605 PO; +ACET-868 PO; +ACID1TAB12 PO; -ALBU18HF2 IH; +AMIO200T4 PO; +AMLO5TAB9 PO; -AMYL1CAP58 PO; -APIX2.5T PO; +ASPI-1152 PO; +ATOR10TA PO; +BUDE10.2 IH; -CALC0.253 PO; -CARV6.252 PO; +CEFE1FRO IV; -CHOL100062 PO; -CYCL30DR EACHEYE; +DAPT500V2 IV; -DARB60VI SUBCUT; +ERGO500014 PO; -ESCI20TA PO; -FEBU40TA PO; -FERR210T PO; +FERR325T23 PO; +FLUT16SP BNOSTRILS; -FOLI0.8T2 PO; +HYDR-4384 PO; -LORA1TAB PO; -MECL-102 PO; +MECL-159 PO; +MEMA10TA PO; +PHEN57OI RC; +SERT25TA PO; -ZOLP5TAB2 PO
[2019-04-12] MEDS ORDERED: DILTIAZEM HCL 25 MG IV ONE (01:45)
--- NOTE | 2019-04-12 01:47 | NUR ---
PT [id number]. SOB. TACHYCARDIA-[id number]. LAST HD ON SAT 04/09/19. GIVEN ALBUTEROL 5MG HHN BY EMS. BILATERAL LLE AND LEFT ARM EDEMA NOTED. AUDIBLE WHEEZING NOTED. PT AAOX4, PLACED ON 4 LITERS O2 SATTING 94%. CONNECTED TO COMMERCIAL COLLECTIONS SPECIALIST AND POX
[2019-04-12] MEDS ORDERED: DILTIAZEM HCL 50 MG IV ONE (01:56)
[2019-04-12] MEDS ORDERED: DILTIAZEM HCL 50 MG IV IV ONE (02:00)
[2019-04-12 02:17] LABS: BASOPHILS # (AUTO) 0.1 /CMM (0.0-0.2); BASOPHILS % (AUTO) 0.7 % (0.0-2.0); EOSINOPHILS % (AUTO) 1.1 % (0.0-6.0); HEMATOCRIT 31 % (33-45); HEMOGLOBIN 9.7 g/dL (11.5-14.8); LYMPHOCYTES # (AUTO) 2.9 /CMM (0.8-4.8); LYMPHOCYTES % (AUTO) 23.6 % (20.0-44.0); MEAN CORPUSCULAR HGB CONC 31 g/dl (31.0-36.0); MEAN CORPUSCULAR VOLUME 95 fL (82-100); MONOCYTES # (AUTO) 1.1 /CMM (0.1-1.30); NEUTROPHILS # (AUTO) 7.9 /CMM (1.8-8.9); NEUTROPHILS % (AUTO) 65.6 % (43.0-81.0); PLATELET COUNT (AUTO) 135 /CMM (150-450); RED BLOOD CELL COUNT(AUTO) 3.26 MIL/uL (4.0-5.2); WHITE BLOOD COUNT (AUTO) 12.1 K/uL (4.3-11.0)
[2019-04-12 02:32] LABS: ALANINE AMINOTRANSFERASE 89 U/L (12-78); ALKALINE PHOSPHATASE 75 U/L (46-116); ASPARTATE AMINOTRANSFERASE 40 U/L (15-37); BILIRUBIN,DIRECT 0.2 mg/dL (0.0-0.2); BILIRUBIN,TOTAL 0.7 mg/dL (0.2-1.0); CALCIUM, SERUM 8.3 mg/dL (8.5-10.1); CARBON DIOXIDE 23 mmol/L (21-32); CHLORIDE 101 mmol/L (98-107); CREATININE 4.5 mg/dL (0.6-1.3); GLUCOSE 126 mg/dL (74-106); POTASSIUM 4.8 mmol/L (3.5-5.1); SODIUM SERUM 137 mmol/L (136-145); TOTAL PROTEIN, SERUM 5.9 g/dL (6.4-8.2); UREA NITROGEN, BLOOD 38 mg/dL (7-18)
--- NOTE | 2019-04-12 04:00 | NUR ---
Patient does not wish to proceed with medical care recommended by Dr. Bazzi. Patient given information related to possible complications, up to and including , which could occur as a result of leaving the hospital at this time. Patient verbalizes understanding of risks involved due to leaving against medical advice. Patient has signed AMA form.
[2019-04-12 05:39] VITALS: BP 131/74
[2019-04-26] MEDS ORDERED: AMOX-427 PO (19:18)
[2019-04-26] MEDS ORDERED: APIX2.5T PO (19:18)
[2019-04-26] MEDS ORDERED: DILT-4 PO (19:18)
[2019-04-26] MEDS ORDERED: CARV6.252 PO (19:18)
== END 2019-04-12 05:40 | disposition left against medical advice (07) ==
LOC: MERGE 01:31 → ER 01:31
DX: E87.79 Other fluid overload (principal); I10 Essential (primary) hypertension; J45.909 Unspecified asthma, uncomplicated; Z98.890 Other specified postprocedural states
CPT/HCPCS: 36415; 71045; 80048; 80076; 83605; 84484; 85025; 85730; 87040 ×2; 93005 ×2; 96374; 99285; J3490 ×2

== ENCOUNTER 2019-04-22 23:37 | Inpatient (IN) | payer MEDICARE, OTHER ==
[~2019-04-22] VITALS: Ht 172.7 cm; Wt 59.9 kg
--- NOTE | 2019-04-22 23:40 | NUR ---
PT BIB EMS C/O SOB WITH RALES, RHONCHI HEARD BILATERALLY ON AUSCULTATION. BLE PRESENT. PT AAOX3, ON CPAP MIMEOGRAPH OPERATOR, RT AT BEDSIDE, PATIENT PLACED ON BIPAP, PT CONNECTED TO THE SPINNING ROOM WORKER AND POX
--- NOTE | 2019-04-22 23:45 | NUR ---
MANAGER SALES AND MARKETING AT BEDSIDE FOR BLOOD DRAW
--- NOTE | 2019-04-22 23:52 | NUR ---
RT NOTE Pt rec'd on cpap mask 15lpm. Pt showed signs of resp distress. pt placed on bipap per md orders on noted settings given per md orders. Abg to be taken in 1 hr. Alarms are set and audible. Bipap plugged into red outlet. Ambu bag bedside. Will continue to monitor. Addendum: 04/23/19 at 0123 by BRITTANEY BRIDGES RT Amended: Links added.
[2019-04-22] MEDS ORDERED: ALBUTEROL FS 2.5 MG/3 ML VIAL.NEB ONE (23:54)
[2019-04-22] MEDS ORDERED: IPRATROPIUM NEB FS 0.5 MG/2.5 ML AMPUL.NEB ONE (23:54)
[2019-04-23] VITALS (37 sets, daily range): BP systolic 94–158; BP diastolic 47–91
[2019-04-23] MEDS ORDERED: IPRATROPIUM NEB FS 0.5 MG/2.5 ML AMPUL.NEB NEB ONE
[2019-04-23] MEDS ORDERED: PIPERACILLIN /TAZOBACTAM 3.375 G in IV D5W 50 ML IV ONE ×2
[2019-04-23] MEDS ORDERED: methylPREDNISolone SOD SUCC 125 MG/2ML VIAL IV ONE
[2019-04-23] MEDS ORDERED: ALBUTEROL FS 2.5 MG/3 ML VIAL.NEB NEB ONE
[2019-04-23] MEDS ORDERED: methylPREDNISolone SOD SUCC 125 MG/2ML VIAL ONE (00:01)
[2019-04-23] MEDS ORDERED: VANCOMYCIN 1 GM VIAL ONE (00:02)
[2019-04-23] MEDS ORDERED: PIPERACILLIN /TAZOBACTAM 3.375 G VIAL IV ONE (00:02)
--- NOTE | 2019-04-23 00:40 | NUR ---
BREATHIGN TX IN PROGRESS
--- NOTE | 2019-04-23 00:40 | NUR ---
RT AT BEDSIDE
[2019-04-23 00:59] LABS: ABG BASE EXCESS -0.8 mmol/L; ABG OXYGEN SATURATION 99.3 % (92.0-98.5); ABG PCO2 39.8 mmHg (35.0-45.0); ABG PH 7.397 (7.350-7.450); ABG PO2 369.3 mmHg (75.0-100.0); AaDO2 303.9 mmHg; COHb 0.3 % (0.5-1.5); MetHb 0.5 % (0.0-1.5); O2Hb 98.5 % (94.0-97.0); SITE, ABG Left Radial
[2019-04-23 01:08] LABS: CALCIUM, SERUM 8.4 mg/dL (8.5-10.1); CARBON DIOXIDE 23 mmol/L (21-32); CHLORIDE 102 mmol/L (98-107); CREATININE 3.7 mg/dL (0.6-1.3); GLUCOSE 187 mg/dL (74-106); POTASSIUM 3.9 mmol/L (3.5-5.1); SODIUM SERUM 137 mmol/L (136-145); UREA NITROGEN, BLOOD 22 mg/dL (7-18)
[2019-04-23 01:10] LABS: BASOPHILS # (AUTO) 0.8 /CMM (0.0-0.2); BASOPHILS % (AUTO) 5.2 % (0.0-2.0); EOSINOPHILS % (AUTO) 1.1 % (0.0-6.0); HEMATOCRIT 31 % (33-45); HEMOGLOBIN 9.1 g/dL (11.5-14.8); LYMPHOCYTES # (AUTO) 1.1 /CMM (0.8-4.8); LYMPHOCYTES % (AUTO) 6.8 % (20.0-44.0); MEAN CORPUSCULAR HGB CONC 30 g/dl (31.0-36.0); MEAN CORPUSCULAR VOLUME 101 fL (82-100); MONOCYTES # (AUTO) 0.7 /CMM (0.1-1.30); MONOCYTES % (AUTO) 4.4 % (2.0-12.0); NEUTROPHILS # (AUTO) 13.4 /CMM (1.8-8.9); NEUTROPHILS % (AUTO) 82.5 % (43.0-81.0); PLATELET COUNT (AUTO) 134 /CMM (150-450); RED BLOOD CELL COUNT(AUTO) 3.05 MIL/uL (4.0-5.2); WHITE BLOOD COUNT (AUTO) 16.2 K/uL (4.3-11.0)
[2019-04-23 01:19] LABS: ALKALINE PHOSPHATASE 78 U/L (46-116); ASPARTATE AMINOTRANSFERASE 23 U/L (15-37); B-TYPE NATRIURETIC PEPTIDE 48147 PG/ML (0-125); BILIRUBIN,DIRECT 0.3 mg/dL (0.0-0.2); TOTAL PROTEIN, SERUM 6.2 g/dL (6.4-8.2)
[2019-04-23] MEDS ORDERED: FUROSEMIDE 40 MG/4 ML VIAL ONE (01:24)
[2019-04-23] MEDS ORDERED: FUROSEMIDE 40 MG/4 ML VIAL IV ONE (01:30)
[2019-04-23 01:37] LABS: ALANINE AMINOTRANSFERASE 29 U/L (12-78)
--- NOTE | 2019-04-23 02:00 | NUR ---
PT UNABLE TO PROVIDE URINE. MADE AWARE
[2019-04-23 02:17] LABS: BAND % (MANUAL) 1 % (0.0-5.0); LYMPHOCYTES % (MANUAL) 11 % (16-48); METAMYELOCYTES % 1 % (0-0); MONOCYTES % (MANUAL) 2 % (0-11.0); MYELOCYTES % 1 % (0-0); NEUTROPHILS % (MANUAL) 83 (42-76); REACTIVE LYMPHOCYTES 1 % (0-0)
--- NOTE | 2019-04-23 02:28 | NUR ---
DR. WOODS ON THE PHONE WITH DR. ELENA
--- NOTE | 2019-04-23 02:38 | NUR ---
BED ASSIGNMENT 255
[2019-04-23] MEDS ORDERED: *INSULIN REGULAR(HUMULIN R)HUM 100 UNIT/ML VIAL SQ PRN (03:30)
[2019-04-23] MEDS ORDERED: ACETAMINOPHEN 325 MG TABLET PO PRN (03:30)
[2019-04-23] MEDS ORDERED: HYDROCODONE/APAP 5/325MG 1 EACH TABLET PO PRN (03:30)
[2019-04-23] MEDS ORDERED: ONDANSETRON HCL/PF 4 MG/2 ML VIAL IVP PRN (03:30)
[2019-04-23] MEDS ORDERED: MAG HYDROX/AL HYDROX/SIMETH 30 ML UDC PO PRN (03:30)
[2019-04-23] MEDS ORDERED: DEXTROSE 50%-WATER 50 ML DISP.SYRIN IV PRN (03:30)
[2019-04-23] MEDS ORDERED: Z GUARD REMEDY 2 OZ OINT TP PRN (03:30)
[2019-04-23] MEDS ORDERED: MAGNESIUM HYDROXIDE 30 ML UDC PO PRN (03:30)
--- NOTE | 2019-04-23 04:10 | NUR ---
PT TRANSFERRED TO 255 IN STABLE CONDITION VIA ACLS PROTOCOL
--- NOTE | 2019-04-23 05:03 | NUR ---
PATROL POLICE LIEUTENANT PT WAS ADMITTED FROM ER @ 4 A.M. WITH DIAGNOSIS RESPIRATORY FAILURE. PT IS AWAKE, ALERT, ORIENTED X 3. PT IS COMFORTABLE- DENIES PAIN, SOB OR ANY OTHER DISCOMFORT. MOVES ALL EXTREMITIES, LEGS ARE WEAK. SPEECH IS CLEAR. VSS. AFEBRILE, SCOPE-A.FIB. PT HAS LEFT UPPER CHEST PACEMAKER. BILATERAL RALES. NO COUGH, NO SPUTUM PRODUCTION. PT IS ON BIPAP. SETTING 12/-18-50%. TOLERATES WELL. BILATERAL LOWER EXTREMITIES AND LEFT ARM EDEMA + 3. LEFT ARM A/V FISTULA. PT HAS ESRD. LAST HD DONE ON THURSDAY. NO URINE OUTPUT @ THIS TIME /PT STATES THAT SHE STILL PRODUCED SMALL AMT. OF URINE @ HOME. 2 D ECHO IS SUPPOSED TO BE DONE IN A.M. WILL CONTINUE CLOSE MONITORING.
[2019-04-23] MEDS: BLOOD SUGAR DIAGNOSTIC 1 EACH STRIP VI SCH ×4 (07:49→21:44)
[2019-04-23] MEDS ORDERED: VANCOMYCIN 500 MG in IV D5W 100 ML IV PRN (08:00)
[2019-04-23] MEDS ORDERED: FEE PK DOSING 1 MIN EA MC ONE (08:00)
[2019-04-23] MEDS: INSULIN REGULAR, HUMAN 100 UNIT/ML 3 ML VIAL SQ PRN (08:41)
[2019-04-23] MEDS ORDERED: EPOETIN ALFA (10,000 UNIT) 10,000 UNIT/ML VIAL IV ONE (09:00)
[2019-04-23] MEDS ORDERED: methylPREDNISolone SOD SUCC 125 MG/2ML VIAL IV SCH (09:00)
[2019-04-23] MEDS: FUROSEMIDE 40 MG/4 ML VIAL IV SCH ×2 (10:03→21:20)
[2019-04-23] MEDS: PIPERACILLIN /TAZOBACTAM 2.25 G in IV D5W 50 ML IV SCH ×2 (11:21→18:39)
[2019-04-23] MEDS ORDERED: VANCOMYCIN 1 GM in IV D5W 250 ML IV ONE ×3 (11:30)
--- NOTE | 2019-04-23 11:55 | NUR ---
RN NOTE: Severo Kim DNP inserted a (L) UA midline for the patient. Old IV site was removed. And HD was done with 2L of fluid removed.
--- NOTE | 2019-04-23 14:00 | NUR ---
RN NOTE: Informed consent for US Guided Thoracentesis was signed by the patient and filed on patient's chart. US Eliane vtc technician was made aware.
--- NOTE | 2019-04-23 15:22 | NUR ---
per RN/ LUISANA consent for Thoracentesis was not signed and Pt was on dialysis till afternoon.
--- NOTE | 2019-04-23 16:25 | NUR ---
RN NOTE: Patient had a (R) lung thoracentesis at the bedside and 220 ml of fluid (reddish in color) was removed by the radiologist.
--- NOTE | 2019-04-23 19:20 | NUR ---
FORMSTONE FITTER NOTE RECEIVED PATIENT IN BED RESTING WITH HOB ELEVATED. A&O X3. VERBALLY RESPONSIVE, ABLE TO SPEAK SPANISH. SPEECH IS CLEAR. ON 3 L O2 VIA NC. BREATHING EVEN AND NON LABORED. NO SOB NOTED. BILATERAL UPPER AND LOWER EXTREMITIES WNL. HD CATH NOTED ON RIGHT UPPER ARM. PATIENT HAS NATHALIA MIDLINE AND PATENT. IN NO APPARENT DISTRESS NOTED AT THIS TIME. CALL LIGHT IS WITHIN EASY REACH. WILL CONTINUE TO MONITOR.
--- NOTE | 2019-04-23 19:50 | NUR ---
RN NOTE: Bedside report was given to AGUILAR Mccoy for continuity of care. Patient has been tolerating O2 3l/min via NC. (L) UA midline noted intact and patent. IV Zosyn was administered late due to the late administration this morning s/p hemodialysis.
--- NOTE | 2019-04-23 21:40 | NUR ---
NATIONAL SALES EXECUTIVE NOTE PATIENT REFUSED BLOOD SUGAR CHECK AT THIS TIME. PATIENT VERBALIZED, "I DON'T WANT BLOOD SUGAR CHECK." PATIENT IS ALERT AND ORIENTED X3. WILL CONTINUE TO MONITOR.
[2019-04-24] VITALS (31 sets, daily range): BP systolic 101–162; BP diastolic 48–83
[2019-04-24] MEDS: PIPERACILLIN /TAZOBACTAM 2.25 G in IV D5W 50 ML IV SCH ×3 (00:30→17:59)
[2019-04-24 04:54] LABS: BASOPHILS % (AUTO) 0.1 % (0.0-2.0); HEMATOCRIT 28 % (33-45); HEMOGLOBIN 8.8 g/dL (11.5-14.8); LYMPHOCYTES # (AUTO) 0.7 /CMM (0.8-4.8); MEAN CORPUSCULAR HGB CONC 32 g/dl (31.0-36.0); MEAN CORPUSCULAR VOLUME 95 fL (82-100); MONOCYTES # (AUTO) 0.6 /CMM (0.1-1.30); MONOCYTES % (AUTO) 4.6 % (2.0-12.0); NEUTROPHILS # (AUTO) 10.9 /CMM (1.8-8.9); NEUTROPHILS % (AUTO) 89.3 % (43.0-81.0); PLATELET COUNT (AUTO) 121 /CMM (150-450); WHITE BLOOD COUNT (AUTO) 12.2 K/uL (4.3-11.0)
--- NOTE | 2019-04-24 05:00 | NUR ---
SANDSTONE SPLITTER NOTE PATIENT REFUSED BED BATH AT THIS TIME. PATIENT IS A&O X3, AMBULATORY WITH MINIMAL ASSISTANCE, AND MOTIVATED TO SELF CARE.
[2019-04-24 05:11] LABS: CALCIUM, SERUM 8.4 mg/dL (8.5-10.1); CARBON DIOXIDE 28 mmol/L (21-32); CHLORIDE 100 mmol/L (98-107); CREATININE 3.9 mg/dL (0.6-1.3); GLUCOSE 137 mg/dL (74-106); MAGNESIUM 1.9 mg/dL (1.8-2.4); PHOSPHORUS 3.9 mg/dL (2.5-4.9); POTASSIUM 4.5 mmol/L (3.5-5.1); SODIUM SERUM 137 mmol/L (136-145); UREA NITROGEN, BLOOD 26 mg/dL (7-18)
--- NOTE | 2019-04-24 07:23 | NUR ---
WORKERS COMPENSATION PARALEGAL CLOSING NOTE PATIENT IS IN BED RESTING WITH HOB ELEVATED. A&O X3. BREATHING EVEN AND NON LABORED, NO SOB NOTED. ON O2 3L VIA. AMBULATORY WITH MINIMAL ASSISTANCE. BRP. DUE MEDS GIVEN AND TOLERATED WELL. PATIENT REFUSED BED BATH IN THIS SHIFT. PATIENT KEPT COMFORTABLE THROUGHOUT THE NIGHT. CALL LIGHT IS WITHIN REACH. ALL NEEDS ATTENDED AND MET. ENDORSED TO AM SHIFT RN FOR CONTINUATION OF CARE.
[2019-04-24] MEDS: INSULIN REGULAR, HUMAN 100 UNIT/ML 3 ML VIAL SQ PRN (07:37)
[2019-04-24] MEDS: BLOOD SUGAR DIAGNOSTIC 1 EACH STRIP VI SCH ×4 (07:37→22:00)
[2019-04-24] MEDS: FUROSEMIDE 40 MG/4 ML VIAL IV SCH (08:30)
[2019-04-24] MEDS: APIXABAN 2.5 MG TABLET PO SCH ×2 (09:51→17:50)
[2019-04-24] MEDS: DILTIAZEM HCL CD 240 MG PO SCH (09:51)
[2019-04-24 10:34] LABS: THYROID STIMULATING HORMONE 0.837 uIU/mL (0.358-3.74)
--- NOTE | 2019-04-24 11:51 | NUR ---
RN NOTE: Patient ambulated today with the assigned RN 1 round in the unit. Patient refused to get her blood sugar check for noontime. Explained risks and benefits, but still strongly refused. Faraz Kim DNP made aware.
--- NOTE | 2019-04-24 17:51 | NUR ---
RN NOTE: Patient's IV Zosyn administration will be given at a later time once hemodialysis is done. Hemodialysis still ongoing at this time.
[2019-04-24] MEDS ORDERED: ALTEPLASE CATHFLO 2 MG/VIAL XX ONE (19:00)
--- NOTE | 2019-04-24 19:38 | NUR ---
RN NOTE: Bedside report was given to AGUILAR Quinn for continuity of care. Patient ate 100% of her dinner meal. Steady gait. Used the call light button well for assistance. Patient was on O2 2L/min via NC and was saturating 100%. (L) UA midline was noted intact and patent.
[2019-04-25] VITALS (10 sets, daily range): BP systolic 119–159; BP diastolic 50–95
[2019-04-25] MEDS: PIPERACILLIN /TAZOBACTAM 2.25 G in IV D5W 50 ML IV SCH ×2 (01:19→10:52)
--- NOTE | 2019-04-25 02:45 | NUR ---
filter washer notes Received report from ICU nurse AGUILAR Quinn.
--- NOTE | 2019-04-25 02:50 | NUR ---
REPORT GIVEN TO JENNIFER RN FOR CONTINUITY OF CARE.
--- NOTE | 2019-04-25 03:07 | NUR ---
TRANSPORTED PATIENT TO ROOM 119-1 TELEMETRY IN STABLE CONDITION AND PATIENT CARE ENDORSED TO MARY SHEIKH FOR CONTINUITY OF CARE.
--- NOTE | 2019-04-25 03:10 | NUR ---
forest ecologist opening notes Received Pt from ICU nurse AGUILAR Quinn. Pt arrived at the unit with a wheelchair. Pt is able to ambulate with a steady gait. Pt is alert and orientedX3. Respiration is normal in room air. Pt refused to have nasal cannula. Pt stated ' I'm fine." Made aware risks and benefits. Pt keep refusing. Tele monitor showed Afib Hr at 87. NATHALIA midline is clean,intact and SL. INDY fistula is thrill and bruit. Skin assessment is done and performed. Pictures is taken and placed in Pt's chart. Pt's belonging was checked by KOFFI Cho. Reorient Pt to the room and the use of call light. Pt verbalized understanding. Safety precautions is maintained. Bed at low position, brakes locked, side railsupX2 and call light is within reach. Will continue to monitor.
--- NOTE | 2019-04-25 06:53 | NUR ---
remedial project manager closing notes Pt is resting in bed comfortably. Pt is alert and orientedX3. Respiration is normal in room air. No SOB. No S/S of distress noted. IV sites at NATHALIA midline# 18 is clean, intact, patent and SL. INDY fistula is thrill and bruit. Tele monitor showed Afib HR at 75. Kept Pt clean, dry and comfortable. Safety precautions is maintained. Bed at low position, brakes locked, side rails upX2 and call light is within reach. Will endorse to morning nurse for RAYSA.
[2019-04-25] MEDS: BLOOD SUGAR DIAGNOSTIC 1 EACH STRIP VI SCH ×4 (07:30→22:29)
--- NOTE | 2019-04-25 07:30 | NUR ---
RN OPENING NOTE RECEIVED PT AWAKE IN BED. A/O X3. SPEAKS GEORGIAN WELL. ON NC 2L TOLERATING WELL. NO CO PAIN OR DISCOMFORT. TELE READING AFIB 75 BPM. EDEMA ON L CHEST WALL ON PACEMAKER. PT HAS AN NATHALIA MIDLINE AND IDNY FISTULA. PT IS DUE FOR A LEXISCAN. RECEIVED CALL FROM [employer] TO HAVE PT NPO. INFORMED PT. PT UNDERSTOOD. SAFETY MEASURE REINFORCED. BED ON LOWEST AND LOCKED POSITION. CALL LIGHT WITHIN REACH. WILL CONT TO MONITOR.
[2019-04-25 08:00] LABS: BASOPHILS % (AUTO) 0.1 % (0.0-2.0); EOSINOPHILS % (AUTO) 0.2 % (0.0-6.0); HEMATOCRIT 30 % (33-45); HEMOGLOBIN 9.6 g/dL (11.5-14.8); LYMPHOCYTES # (AUTO) 1.9 /CMM (0.8-4.8); LYMPHOCYTES % (AUTO) 15.6 % (20.0-44.0); MEAN CORPUSCULAR HGB CONC 32 g/dl (31.0-36.0); MEAN CORPUSCULAR VOLUME 95 fL (82-100); MONOCYTES # (AUTO) 0.8 /CMM (0.1-1.30); MONOCYTES % (AUTO) 6.4 % (2.0-12.0); NEUTROPHILS # (AUTO) 9.6 /CMM (1.8-8.9); NEUTROPHILS % (AUTO) 77.7 % (43.0-81.0); PLATELET COUNT (AUTO) 145 /CMM (150-450); RED BLOOD CELL COUNT(AUTO) 3.16 MIL/uL (4.0-5.2); WHITE BLOOD COUNT (AUTO) 12.3 K/uL (4.3-11.0)
[2019-04-25 08:12] LABS: CALCIUM, SERUM 8.5 mg/dL (8.5-10.1); CARBON DIOXIDE 27 mmol/L (21-32); CHLORIDE 100 mmol/L (98-107); CREATININE 3.6 mg/dL (0.6-1.3); GLUCOSE 93 mg/dL (74-106); MAGNESIUM 1.8 mg/dL (1.8-2.4); PHOSPHORUS 3.1 mg/dL (2.5-4.9); POTASSIUM 3.7 mmol/L (3.5-5.1); SODIUM SERUM 137 mmol/L (136-145); UREA NITROGEN, BLOOD 20 mg/dL (7-18)
[2019-04-25] MEDS ORDERED: REGADENOSON 0.4 MG/5 ML DISP.SYRIN IVP ONE (09:00)
--- NOTE | 2019-04-25 09:05 | NUR ---
RN NOTE PT WAS TAKEN BY [facility] [employer] FOR PROCEDURE VIA WHEELCHAIR IN STABLE CONDITION. REMOVED TELE LEADS AND BOX.
--- NOTE | 2019-04-25 10:33 | NUR ---
RN NOTES PATIENT BACK FROM [facility]
--- NOTE | 2019-04-25 10:40 | NUR ---
RN NOTE PT CAME BACK FROM PROCEDURE IN STABLE CONDITION. EATING HER BREAKFAST NOW.
[2019-04-25] MEDS: APIXABAN 2.5 MG TABLET PO SCH ×2 (10:51→17:04)
[2019-04-25] MEDS: DILTIAZEM HCL CD 240 MG PO SCH (10:52)
[2019-04-25] MEDS: CARVEDILOL 6.25 MG TABLET PO SCH ×2 (10:53→22:16)
--- NOTE | 2019-04-25 11:41 | NUR ---
RN SUSAN ALMAGUER FROM NUCLEAR MED TOOK PT TO DO PROCEDURE. PT IN STABLE CONDITION.
--- NOTE | 2019-04-25 12:30 | NUR ---
RN NOTE PT CAME BACK FROM PROCEDURE IN STABLE CONDITION.
--- NOTE | 2019-04-25 19:02 | NUR ---
RN CLOSING NOTE PT IS AWAKE IN BED NO SIGNS OF DISTRESS. NO CO PAIN OR DISCOMFORT. VITAL SIGNS WITHIN NORMAL LIMITS. PT IS ON STRICT I&O. DIALYSIS NURSE AT BEDSIDE. NO CHANGE OF CONDITION AT THIS TIME. REINFORCED SAFETY MEASURES. CALL LIGHT WITHIN REACH. WILL ENDORSE TO OUTPATIENT PHYSICAL THERAPIST ASSISTANT.
--- NOTE | 2019-04-25 19:18 | NUR ---
RN CLOSING NOTE ENDORSED TO THE NEXT SHIFT FOR RAYSA.
--- NOTE | 2019-04-25 19:20 | NUR ---
RN OPENING NOTES RECEIVED PT AWAKE IN BED, AWAKE, A/OX3. CURRENTLY RECEIVING HEMODIALYSIS. ON TELE MONITOR AFIB WITH HR 80'S. ON ROOM AIR, TOLERATING WELL, NO SOB OR RESPIRATORY DISTRESS NOTED. IV SITE NATHALIA MIDLINE FLUSHING AND PATENT, SALINE LOCKED. INDY FISTULA INTACT. SAFETY MEASURE MAINTAINED; BED ON LOWEST AND LOCKED POSITION, CALL LIGHT WITHIN REACH. WILL CONT TO MONITOR PATIENT CLOSELY.
[2019-04-26] VITALS: BP 105/56
[2019-04-26] MEDS: PIPERACILLIN /TAZOBACTAM 2.25 G in IV D5W 50 ML IV SCH ×4 (00:25→16:03)
--- NOTE | 2019-04-26 03:15 | NUR ---
MARINE ELECTRONICS REPAIRERROTARY PUMP OPERATOR OF CARE NOTE RECEIVED PATIENT FROM KEMAL SHEIKH. PATIENT RECEIVED IN BED, A/OX 3-4. TOLERATING ROOM AIR. RESPIRATIONS ARE EVEN AND UNLABORED. NO S/S SOB NOTED. NO S/S PAIN NOTED. EXTERNAL TELE MONITOR READS CONTROLLED A. FIB HR 80S. IN NO APPARENT DISTRESS. IV ACCESS IN NATHALIA MIDLINE PATENT AN D SALINE LOCKED, PATIENT HAS A INDY FISTULA, POSITIVE THRILL AND BRIUT. BED IS LOW AND LOCKED, HOB ELEVATED IN SEMI FOWLERS, SIDE RIALS UP X2. CALL LIGHT WITHIN REACH. WILL CONTINUE TO MONITOR.
[2019-04-26 04:00] VITALS: BP 126/60
--- NOTE | 2019-04-26 06:50 | NUR ---
IRRIGATION INSTALLATION SPECIALIST CLOSING NOTE PATIENT IN BED, A/OX 3-4. TOLERATING ROOM AIR. RESPIRATIONS ARE EVEN AND UNLABORED. NO SOB NOTED. NO C/O PAIN THROUGHOUT SHIFT. EXTERNAL TELE MONITOR READS CONTROLLED A. FIB HR 80S. NO DISTRESS NOTED. IV ACCESS MAINTAINED IN NATHALIA MIDLINE PATENT AN D SALINE LOCKED, PATIENT HAS A INDY FISTULA, POSITIVE THRILL AND BRIUT. BED IS LOW AND LOCKED, HOB ELEVATED IN SEMI FOWLERS, SIDE RIALS UP X2. CALL LIGHT WITHIN REACH. WILL ENDORSE TO NEXT SHIFT.
[2019-04-26 07:19] LABS: BASOPHILS % (AUTO) 0.4 % (0.0-2.0); EOSINOPHILS % (AUTO) 0.8 % (0.0-6.0); HEMATOCRIT 28 % (33-45); HEMOGLOBIN 9.1 g/dL (11.5-14.8); LYMPHOCYTES # (AUTO) 1.7 /CMM (0.8-4.8); LYMPHOCYTES % (AUTO) 19.5 % (20.0-44.0); MEAN CORPUSCULAR HGB CONC 32 g/dl (31.0-36.0); MEAN CORPUSCULAR VOLUME 95 fL (82-100); MONOCYTES # (AUTO) 0.7 /CMM (0.1-1.30); NEUTROPHILS # (AUTO) 6.4 /CMM (1.8-8.9); NEUTROPHILS % (AUTO) 71.3 % (43.0-81.0); PLATELET COUNT (AUTO) 126 /CMM (150-450); RED BLOOD CELL COUNT(AUTO) 2.98 MIL/uL (4.0-5.2); WHITE BLOOD COUNT (AUTO) 8.9 K/uL (4.3-11.0)
[2019-04-26 07:54] LABS: CALCIUM, SERUM 8.1 mg/dL (8.5-10.1); CARBON DIOXIDE 25 mmol/L (21-32); CHLORIDE 101 mmol/L (98-107); CREATININE 3.5 mg/dL (0.6-1.3); GLUCOSE 87 mg/dL (74-106); MAGNESIUM 1.9 mg/dL (1.8-2.4); PHOSPHORUS 2.9 mg/dL (2.5-4.9); POTASSIUM 3.4 mmol/L (3.5-5.1); SODIUM SERUM 137 mmol/L (136-145); UREA NITROGEN, BLOOD 20 mg/dL (7-18)
[2019-04-26 08:00] VITALS: BP_SYST 145; BP_SYST 155; BP_DIAS 76; BP_DIAS 86
[2019-04-26] MEDS: BLOOD SUGAR DIAGNOSTIC 1 EACH STRIP VI SCH ×4 (08:25→22:00)
[2019-04-26] MEDS: CARVEDILOL 6.25 MG TABLET PO SCH ×2 (08:56→21:17)
[2019-04-26] MEDS: DILTIAZEM HCL CD 240 MG PO SCH (08:56)
[2019-04-26] MEDS: APIXABAN 2.5 MG TABLET PO SCH ×2 (08:57→16:04)
[2019-04-26 12:00] VITALS: BP 138/73
[2019-04-26 16:00] VITALS: BP_SYST 118; BP_DIAS 47; BP_DIAS 82
[2019-04-26] MEDS ORDERED: CARV6.252 PO (19:18)
[2019-04-26] MEDS ORDERED: DILT-4 PO (19:18)
[2019-04-26] MEDS ORDERED: APIX2.5T PO (19:18)
[2019-04-26] MEDS ORDERED: AMOX-427 PO (19:18)
--- NOTE | 2019-04-26 19:25 | NUR ---
RN OPEN NOTES RECEIVED PATIENT AWAKE IN BED. A/OX4. NO SIGNS OF DISTRESS OR DISCOMFORT. BREATHING EVEN AND UNLABORED. HAS NATHALIA MIDLINE PATENT AND INTACT, NO SIGNS OF REDNESS OR INFILTRATION. HAS INDY FISTULA INTACT. PATIENT REFUSING LIFEVEST AT THIS TIME, MD AWARE. BED IN LOW LOCKED POSITION WITH SIDE RAILS X2. CALL LIGHT WITHIN REACH. WILL CONTINUE TO MONITOR.
--- NOTE | 2019-04-26 19:39 | NUR ---
MS/RN CLOSING NOTES PATIENT CONTINUES TO REMAIN IN STABLE CONDITION THROUGHOUT THE SHIFT. PROVIDED COMFORT AND SAFETY. PATIENT ABLE TO TOLERATE MEALS AND MEDS WELL. LIFEVEST CURVE SAW OPERATOR IN THE UNIT TRIED TO EXPLAIN AND TEACH THE PATIENT ABOUT THE LIFEVEST, BUT PATIENT WAS NOT COOPERATING. SIVAN ASHBY WAS AWARE OF THE SITUATION. PATIENT WILL STAY OVERNIGHT AND LIFEVEST REP WILL TRY AGAIN TOMORROW AT A DIFFERENT TIME. ALL NEEDS ANTICIPATED. CALL LIGHT WITHIN REACHED. BED LOCKED AND IN LOWEST POSITION. WILL CONTINUE TO MONITOR CLOSELY. ENDORSED TO PM NURSE FOR RAYSA.
[2019-04-26 20:00] VITALS: BP 116/51
[2019-04-27] MEDS: PIPERACILLIN /TAZOBACTAM 2.25 G in IV D5W 50 ML IV SCH ×2 (01:04→12:41)
[2019-04-27 04:00] VITALS: BP 117/55
[2019-04-27 06:31] LABS: BASOPHILS # (AUTO) 0.1 /CMM (0.0-0.2); EOSINOPHILS % (AUTO) 1.9 % (0.0-6.0); HEMATOCRIT 29 % (33-45); HEMOGLOBIN 9.6 g/dL (11.5-14.8); LYMPHOCYTES # (AUTO) 1.8 /CMM (0.8-4.8); LYMPHOCYTES % (AUTO) 21.3 % (20.0-44.0); MEAN CORPUSCULAR HGB CONC 33 g/dl (31.0-36.0); MEAN CORPUSCULAR VOLUME 95 fL (82-100); MONOCYTES # (AUTO) 0.9 /CMM (0.1-1.30); MONOCYTES % (AUTO) 10.2 % (2.0-12.0); NEUTROPHILS # (AUTO) 5.5 /CMM (1.8-8.9); NEUTROPHILS % (AUTO) 65.6 % (43.0-81.0); PLATELET COUNT (AUTO) 134 /CMM (150-450); WHITE BLOOD COUNT (AUTO) 8.3 K/uL (4.3-11.0)
--- NOTE | 2019-04-27 06:32 | NUR ---
RN CLOSING NOTES PATIENT RESTING IN BED, EASILY AROUSABLE. A/OX4. NO SIGNS OF DISTRESS OR DISCOMFORT. BREATHING EVEN AND UNLABORED. HAS NATHALIA MIDLINE PATENT AND INTACT, NO SIGNS OF REDNESS OR INFILTRATION. HAS INDY FISTULA INTACT. DENIES ANY PAIN. ALL NEEDS MET. NO SIGNIFICANT CHANGES THROUGH THE NIGHT. BED IN LOW LOCKED POSITION WITH SIDE RAILS X2. CALL LIGHT WITHIN REACH. WILL ENDORSE TO AM SHIFT FOR RAYSA. .
[2019-04-27] MEDS: BLOOD SUGAR DIAGNOSTIC 1 EACH STRIP VI SCH ×2 (06:59→12:38)
[2019-04-27 07:42] LABS: CALCIUM, SERUM 7.7 mg/dL (8.5-10.1); CARBON DIOXIDE 22 mmol/L (21-32); CHLORIDE 100 mmol/L (98-107); CREATININE 4.4 mg/dL (0.6-1.3); GLUCOSE 95 mg/dL (74-106); MAGNESIUM 1.9 mg/dL (1.8-2.4); PHOSPHORUS 3.9 mg/dL (2.5-4.9); POTASSIUM 3.5 mmol/L (3.5-5.1); SODIUM SERUM 135 mmol/L (136-145); UREA NITROGEN, BLOOD 29 mg/dL (7-18)
--- NOTE | 2019-04-27 07:44 | NUR ---
MS RN OPENING NOTES RECEIVED PATIENT IN BED, AWAKE, A/O X4, SITTING IN BED. PATIENT ON ROOM AIR BREATHING EVENLY AND WITH NO ACUTE SIGNS OF DISTRESS OR SOB PRESENT AT THIS TIME. DENIES ANY PAIN AT THIS MOMENT. INDY FISTULA PRESENT AND INTACT WITH BRUITS RESENT. NATHALIA MIDLINE IS INTACT AND PATENT, FLUSHING WELL. SAFETY PRECAUTIONS IN PLACE; BED IN LOW POSITION AND LOCKED, RAILS UP X2, CALL LIGHT WITHIN REACH. WILL CONTINUE TO MONITOR PATIENT.
[2019-04-27 08:00] VITALS: BP 135/81
[2019-04-27] MEDS: DILTIAZEM HCL CD 240 MG PO SCH (08:48)
[2019-04-27] MEDS: CARVEDILOL 6.25 MG TABLET PO SCH (08:48)
[2019-04-27] MEDS: APIXABAN 2.5 MG TABLET PO SCH (08:49)
--- NOTE | 2019-04-27 08:50 | NUR ---
MS RN NOTES 0900 MEDS HELD DUE TO PATIENT RECEIVING DIALYSIS.
--- NOTE | 2019-04-27 14:26 | NUR ---
MS MARKETING EFFECTIVENESS MANAGER NOTES PATIENT DISCHARGED HOME IN MEDICALLY STABLE CONDITION. PATIENT BREATHING ON ROOM AIR WITH NO ACUTE SIGNS OF DISTRESS OR SOB PRESENT. VITAL SIGNS TAKEN AND ARE WNL. ALL DISCHARGE DOCUMENTS READY AND SIGNED. TEACHING PROVIDING TO THE PATIENT AND PATIENT VERBALIZED UNDERSTANDING. VALUABLE FORM ACCOUNTED FOR AND SIGNED. PICTURES TAKEN AND FILED. BEFORE LEAVING THE FLOOR PATIENTS IV AND WRIST BAND WAS REMOVED. PATIENT LEFT THE FLOOR ACCOMPANIED BY LIGHT OUT EXAMINER. PATIENT TOOK AN UBER HOME.
== END 2019-04-27 14:35 | disposition home health service (06) | DRG 871 ==
LOC: ER 23:39 → MERGE 04-23 02:47 → ICU 04-23 02:47 → TELE1 04-25 03:02 → MEDSG1 04-26 10:08
PROVIDERS: ADMIT Internal Medicine; ATTEND Nurse Practitioner Acute Care
PROC: 5A09357 Assistance with Respiratory Ventilation, Less than 24 Consecutive Hours, Continuous Positive Airway Pressure (ICD-10-PCS; principal; 2019-04-23)
PROC: 5A1D70Z Performance of Urinary Filtration, Intermittent, Less than 6 Hours Per Day (ICD-10-PCS; 2019-04-23)
DX: A41.9 Sepsis, unspecified organism (principal); E43 Unspecified severe protein-calorie malnutrition; G93.41 Metabolic encephalopathy; N18.6 End stage renal disease; J96.01 Acute respiratory failure with hypoxia; J15.6 Pneumonia due to other Gram-negative bacteria; I50.23 Acute on chronic systolic (congestive) heart failure; E87.2 Acidosis; D68.59 Other primary thrombophilia; I13.2 Hypertensive heart and chronic kidney disease with heart failure and with stage 5 chronic kidney disease, or end stage renal disease; J44.0 Chronic obstructive pulmonary disease with (acute) lower respiratory infection; E11.22 Type 2 diabetes mellitus with diabetic chronic kidney disease; Z99.2 Dependence on renal dialysis; I48.91 Unspecified atrial fibrillation; D63.8 Anemia in other chronic diseases classified elsewhere; I25.5 Ischemic cardiomyopathy; I27.20 Pulmonary hypertension, unspecified; I70.0 Atherosclerosis of aorta; Z82.49 Family history of ischemic heart disease and other diseases of the circulatory system; Z79.01 Long term (current) use of anticoagulants; D69.6 Thrombocytopenia, unspecified; Z74.01 Bed confinement status; I34.0 Nonrheumatic mitral (valve) insufficiency; D53.9 Nutritional anemia, unspecified
CPT/HCPCS: 36415; 36600; 71045-TC; 80048-TC; 80076-TC; 80202-TC; 82728-TC; 82803-TC; 82962-TC; 83540-TC; 83605-TC; 83735-TC; 83880; 84100-TC; 84439-TC; 84443-TC; 84484-TC; 85025-TC; 85730-TC; 86706; 87040-TC; 87081-TC; 87340; 90935-TC; 93307-TC; 93970-TC; 99082-TC; A9502; G0378; J0885; J1815; J1940; J2543; J2785; J2930; J2997; J3370; J7030; J7050; J7060